=== PATIENT | male | born 1995 | race Caucasian/White ===

== ENCOUNTER 2016-11-18 04:03 | Emergency (ER) | payer SELFPAY ==
[~2016-11-18] VITALS: Ht 175.3 cm; Wt 68.2 kg
[2016-11-18 04:05] VITALS: BP 113/63; PULSE 108; RESP 16; O2SAT 100
--- NOTE | 2016-11-18 04:27 | ED.REPORT ---
HPI-General Illness Date of Service Nov 18, 2016 ED Provider: Dr. David Gorman M.D. A healthy 21 year old male presents to the ED with generalized myalgias onset three days ago. Associated symptoms include cough, dizziness, nasal congestion, sore throat, fever (38.3 in ED), pleuritic chest pain, and headache. The patient denies other symptoms. Nursing Notes Stated Complaint: CONGESTION, FEVER Chief Complaint: FLU/Cold Symptoms Nursing Notes Reviewed: Yes Allergies: Coded Allergies: No Known Allergies (Unverified , 11/18/16) Scheduled PRN Ibuprofen (Ibuprofen) 600 Mg Tablet 600 MG PO QID PRN PRN For Pain General Time Seen by MD: 04:25 Chief Complaint Other (Generalized Myalgias) Hx Obtained From: Patient Arrived By: Walk-in Sudden in Onset?: Yes Onset Occurred: 4 days ago Symptom Duration: Since onset Location: : Abdomen: Back: Chest Quality: Painful Severity: Current: Moderate Severity: Maximum: Moderate Associated with: Reports: Chest pain, Congestion, Cough, Fever, Headache Pertinent Negative: Relieved by nothing Recent Healthcare: No recent doctor visit Past Medical History Past Medical History None reported Past Surgical History None reported Smoking History Never Smoker Social History 11/2016: Recently incarcerated Other Social History: Good social support Ambulatory Status Independent Review of Systems Full Review of Systems Constitutional: Reports: Fever (38.3 in ED) Ears / Nose / Throat: Reports: Nasal congestion, Sore throat Respiratory: Reports: Non-productive cough, Pleuritic pain, Denies: Shortness of breath Cardiovascular: Reports: Chest pain GI: Denies: Diarrhea, Vomiting Musculoskeletal: Reports: Myalgia (Generalized) Neurologic: Reports: Dizziness, Headache Complete sys rev & neg: except as marked. Physical Exam Vital Signs Vital Signs Date Time Temp Pulse Resp B/P Pulse Ox O2 Delivery O2 Flow Rate FiO2 11/18/16 04:05 38.3 108 16 113/63 100 Room Air Initial VS: Reviewed Head / Eyes: Atraumatic, Normocephalic Neck: Supple, Full range of motion Respiratory: Breath sounds normal, Clear to auscultation, No respiratory distress Cardiovascular: Regular rate & rhythm, Heart sounds normal Abdomen / GI: Soft, Non-tender Skin: Warm, Dry, No cyanosis Neurologic: Alert, Oriented, Nonfocal Psychiatric: Mood/affect normal, Behavior normal, Normal thought content General/Constitutional: Awake, Alert Distress / Hydration: Positive: Dehydration mild ENT: Airway patent, Mucous membranes moist, Pharynx NL, Tympanic membs NL, Ext aud canal NL Interpretation & Diagnostics INFLUENZA NEGATIVE BEDSIDE RAPID STREP TEST NEGATIVE Re-Eval/Medical Decision Med Decision/Clinical Course 21-year-old presents with flulike symptoms, cough, fever, and aches. Flu swab is negative probably falsely so. He has a fairly classic case in endemic season. Discharge home with ibuprofen, fluids, albuterol puffer and spacer. Discharged in stable condition. Time of Eval: 05:45 Patient Status: Condition improved Re-Evaluation/Progress Note: Discussed with patient lab results, diagnosis, and plan for discharge. Follow-up and return to the ER instructions given. Patient agrees with plan for care and all questions were addressed. Counseled Regarding: Diagnosis, Lab results, Need for follow-up, When/why to return to ED Discharge & Departure Shift Change Sign-Out Response to Therapy: Improved Primary Impression: Bronchitis Additional Impression: Flu-like symptoms Disposition: Home Discharge Condition All VS Reviewed: Yes Condition: Improved Patient Instructions: Influenza (ED) Additional Instructions: You have either a flulike illness or influenza. The test can be falsely negative. The treatment is the same in any case. There is no antibiotic that is useful. They will only give any side effects. 3 feet aches and fever with regular dosing with ibuprofen, 600 mg four times a day, and may also alternate with Tylenol 1 g four times daily. Albuterol puffer two puffs every four hours as needed for cough Follow up with your doctor in the office. May follow-up at [facility] residency clinic if local coverage as needed. Return if any worsening difficulty breathing or other new symptoms of concern. Referrals: [facility] Scribe Attestation Portions of this note were transcribed by Diana Xavier. I, Dr. Gorman, personally performed the history, physical exam, and medical decision-making; I reviewed and confirmed the accuracy of the information in the transcribed note. Signed by: Josy Lazar, 11/18/2016, 06:00 copies to: [facility] Residency [facility] David Gorman MD Nov 18, 2016 04:27 DIANA XAVIER Nov 18, 2016 04:43
[2016-11-18] MEDS ORDERED: Ketorolac 30 mg/mL 2 mL Inj IM ONE (04:40)
[2016-11-18] MEDS ORDERED: _Albuterol-HFA 60 Puff Inhaler INHALATION PRN (05:45)
[2016-11-18] MEDS ORDERED: IBUP-1827 PO (05:51)
== END 2016-11-18 06:04 | disposition home or self-care (01) ==
LOC: SED 04:03
DX: J40 Bronchitis, not specified as acute or chronic (principal); M79.1 Myalgia; R05 Cough; R42 Dizziness and giddiness; R09.81 Nasal congestion; J02.9 Acute pharyngitis, unspecified; R50.9 Fever, unspecified; R07.1 Chest pain on breathing; R51 Headache
CPT/HCPCS: 87804; 87880; 94640; 96372; 99284; J1885